=== PATIENT | male | born 1970 | race Caucasian/White ===

== ENCOUNTER 2018-04-25 17:16 | Emergency (ER) | payer BC, SELFPAY ==
[2018-04-25] VITALS (18 sets, daily range): BP systolic 111–179; BP diastolic 77–104; PULSE 70–101; RESP 12–30; TEMP 36.6–37; O2SAT 90–100
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
[2018-04-25] MEDS: LORazepam 2 MG/ML VIAL (17:20)
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
--- NOTE | 2018-04-25 17:27 | DI.CT_ITS ---
SYMPTOM/DIAGNOSIS: ABRUPT UPPER ABDOMINAL PAIN, POSTERIOR RIB PAIN CHEST CT: The exam is mildly limited by motion. The heart size is normal. The lungs are clear. No pneumothorax, pleural or pericardial effusions are seen. CT ABDOMEN AND PELVIS: The liver is enlarged and shows mild fatty infiltration. The patient is status post cholecystectomy. There is no biliary dilatation. Tiny hypodensity seen at the upper portion of the spleen, likely a cyst. The pancreas, adrenals and kidneys as well as prostate and bladder are unremarkable. No bowel dilatation or inflammatory changes are seen. No free air or free fluid is seen. There is a right hip prosthesis. Degenerative changes are noted in the left hip. There are bilateral L5 pars defects with no significant spondylolisthesis. There is mild disc bulging at L5-S1 and small end plate osteophytes. Osteophytes are seen in the lower and mid thoracic region projecting mainly anteriorly and toward the right. IMPRESSION: No acute abnormality. Incidental findings as mentioned above.
[2018-04-25] MEDS: HYDROmorphone 2 MG/ML VIAL 1 MG IVP (17:29)
[2018-04-25] MEDS: Ondansetron 4 MG/2 ML VIAL IVP ×2 (17:29→22:30)
[2018-04-25 17:33] LABS: Abs Immature Grans 0.02 k/cumm (0.0-0.09); Absolute Basophil Count 0.03 k/cumm (0.0-0.2); Absolute Eosinophil Count 0.14 k/cumm (0.0-0.7); Absolute Monocyte Count 0.47 k/cumm (0.11-0.7); Basophils % 0.2; Eosinophils % 1.1; HCT 43.3 % (40.0-50.0); HGB 15.3 g/dL (13.5-17.5); Immature Grans % 0.2; Lymphocytes % 8.9; Mean Corp. HGB Concentration 35.3 g/dL (32.0-36.0); Mean Corpuscular Hemoglobin 32.3 pg (27.0-33.0); Mean Corpuscular Volume 91.5 fL (80-95); Mean Platelet Volume 8.8 fL (8.0-11.0); Monocytes % 3.7; Neutrophils % 85.9; Platelet Count 337 x1000/uL (130-400); RBC 4.73 m/cumm (4.50-6.00); RBC Distribution Width 12.6 % (11.8-14.1); White Blood Cell Count 12.63 k/cumm (4.4-10.8)
[2018-04-25 17:36] LABS: Absolute Lymphocyte Count 1.12 k/cumm (1.2-3.4); Absolute Neutrophil Count 10.85 k/cumm (1.2-6.7)
[2018-04-25 17:50] LABS: ALT 51 U/L (12-78); AST 29 U/L (15-37); Albumin 4.7 g/dL (3.4-5.0); Alkaline Phosphatase 77 U/L (46-116); Anion Gap 15.5 mmol/L (3-11); BUN 13 mg/dL (7-18); Bilirubin, Total 0.6 mg/dL (0.2-1.0); CO2 26.5 mmol/L (21.0-32.0); CREATININE 0.99 mg/dL (0.70-1.30); Calcium 9.9 mg/dL (8.5-10.1); Chloride 98 mmol/L (98-107); Glucose 138 mg/dL (70-100); Lipase 62 U/L (73-393); Magnesium 1.6 mg/dL (1.8-2.4); Potassium 3.4 mmol/L (3.5-5.1); Sodium 140 mmol/L (136-145); Total Protein 8.8 g/dL (6.4-8.2)
[2018-04-25 17:51] LABS: Troponin I < 0.02 ng/mL (0.00-0.06)
[2018-04-25] MEDS: Pantoprazole 40 MG VIAL IVP (17:55)
[2018-04-25] MEDS: Omnipaque 350 MG/ML 100 ML BTL IJ (18:22)
--- NOTE | 2018-04-25 18:52 | DI.VRAD_ITS ---
EXAM: CT Chest With Contrast EXAM DATE/TIME: 04/25/2018 6:16 PM CLINICAL HISTORY: 48 years old, male; Pain; Other: Abrupt upper abd pain; Chest pain; Type not specified TECHNIQUE: Axial computed tomography images of the chest with intravenous contrast. Coronal and sagittal reformatted images were created and reviewed. COMPARISON: CT Private^ROUTINE ABDOMEN PELVIS WITH CONTRAST (Adult) 04/25/2018 6:11 PM FINDINGS: Lungs: Clear. Pleural space: Normal. No pneumothorax. No pleural effusion. Heart: Normal in size and configuration. No pericardial effusion. Pulmonary arteries: Normal in course and caliber. Aorta: Normal in course and caliber. No acute pathology. Lymph nodes: No adenopathy. Bones/joints: No acute skeletal pathology. Mild multilevel degenerative changes of the spine, as manifested by multilevel anterior osteophytes and multilevel decrease in intervertebral disc space. Soft tissues: Unremarkable. Upper abdomen: Visualized upper abdominal structures are unremarkable. IMPRESSION: Negative for acute thoracic pathology. EXAM: CT Abdomen and Pelvis With Contrast EXAM DATE/TIME: 04/25/2018 6:16 PM CLINICAL HISTORY: 48 years old, male; Pain; Other: Abrupt upper abd pain; Chest pain; Type not specified TECHNIQUE: Axial computed tomography images of the abdomen and pelvis with intravenous contrast. Coronal and sagittal reformatted images were created and reviewed. COMPARISON: CT Private^ROUTINE ABDOMEN PELVIS WITH CONTRAST (Adult) 04/25/2018 6:11 PM FINDINGS: Lower thorax: No acute findings. ABDOMEN: Liver: Liver is enlarged measuring 22 cm long. There is a diffuse decrease in hepatic parenchymal density, consistent with fatty infiltration. No focal liver lesions or acute pathology. Gallbladder and bile ducts: Patient status post cholecystectomy. No biliary ductal dilation. Pancreas: Normal. No ductal dilation. Spleen: 1.0 cm hypodense lesion in the upper pole of the spleen is indeterminate, but most likely benign representing a small cyst. Spleen is otherwise unremarkable. Adrenals: Normal. No mass. Kidneys and ureters: Normal. No hydronephrosis. Stomach and bowel: There is diffuse colonic wall thickening. No bowel obstruction. Small bowel appears grossly unremarkable. Appendix: Appendix is not confidently visualized in this examination. PELVIS: Bladder: Unremarkable as visualized. Reproductive: Unremarkable as visualized. ABDOMEN and PELVIS: Intraperitoneal space: Normal. No free air. No significant fluid collection. Bones/joints: Patient status post complete right hip arthroplasty without acute complications. No acute skeletal pathology. Mild multilevel degenerative changes of the spine, as manifested by multilevel anterior osteophytes and multilevel decrease in intervertebral disc space. Bilateral L5-S1 spondylolysis. Soft tissues: Small bilateral fat-containing inguinal hernias are noted. Vasculature: The vasculature demonstrates diffuse mild atherosclerotic calcification. Lymph nodes: Normal. No enlarged lymph nodes. IMPRESSION: 1. Differential diagnosis for colonic findings includes: Infectious/inflammatory pancolitis, colonic submucosal edema, or wall thickening related to underdistention. 2. No other acute abdominopelvic pathology is appreciated. 3. Incidental findings as detailed above. Dictated and Authenticated by: Trung García MD. Ordering:JERE Branch MD
[2018-04-25 21:17] LABS: Troponin I < 0.02 ng/mL (0.00-0.06)
--- NOTE | 2018-04-25 22:15 | ED.GENADUL_ITS ---
Discharge Plan Disposition Patient Disposition: HOME Condition: Good Discharge Details Chief Complaint: Chest Pain Clinical Impression: Acute epigastric pain, Gastritis Reason For Visit: I tthink im having a heart attack Primary Care Provider: Urban Burns ED Provider: Wyatt Cooper Home Meds and New Rx's Prescriptions: New ranitidine HCl 300 mg capsule 300 mg PO DAILY Qty: 30 RF: 0 No Action pantoprazole [Protonix] 40 mg Tablet,Delayed Release (Dr/Ec) 40 mg PO DAILY RF: 0 lorazepam 0.5 MG tablet 0.5 mg PO PRN PRNRF: 0 meloxicam [Mobic] 15 MG tablet 15 mg PO DAILY RF: 0 hydromorphone 4 MG tablet 4 mg PO PRN PRNRF: 0 diphenhydramine-acetaminophen [Tylenol PM Extra Strength] 1 EACH tablet 1 tab PO HS RF: 0 Discharge Instructions Instructions: Gastritis (ED), Abdominal Pain (ED) Additional Instructions: Please avoid any spicy foods, tomato-based products, garlic foods, or citrus- based products. Please stick with a easy diet of mashed potatoes, rice, and oatmeal for the time being. Please take medication as directed. if you notice any worsening of your symptoms, or any new symptoms such as vomiting, diarrhea, fever, chills, shortness of breath, chest pain, numbness, weakness, or fainting , please return immediately to the emergency department for reevaluation. Please follow up with your primary care provider as soon as possible for reassessment and reevaluation. As always, it was a pleasure participating in your medical care today. Referrals: Urban Burns [Primary Care Provider] - Medical Decision Making This is a 48-year-old male who was signed out to me my my colleague Dr. Jose Carlos Dugan. We are pending a repeat troponin at that time. Repeat troponin has returned normal. Patient came in for complaint of epigastric pain that started roughly 30 minutes to an hour prior to arrival. 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 Patient's laboratory workup was relatively benign. CT chest abdomen and pelvis was negative for any acute process. EKG benign. Lipase was normal, troponin normal, alk phos normal. Patient has had his appendix and gallbladder surgically removed. Patient is feeling much better at this time after Zofran. I feel the patient signs and symptoms are consistent with most likely mild gastritis, and clinically inconsistent at this time with acute ACS. Patient's heart score is low. Thank you patient will be discharged home with close follow-up. We discussed the importance of further evaluation for potential EGD on an outpatient basis as well as the appropriate diet. I have extensively reviewed the treatment plan and discharge instructions with the patient. I have addressed all patient concerns at this time. The patient was made aware of what symptoms to monitor for that would warrant a return to the emergency department. Discussed the plan with the patient, they demonstrate verbal understanding and agreement with our assessment and plan at this time. HPI General Mode of arrival: ambulatory . Date/Time Provider Initiated Documentation: 04/25/18 17:17 . Limitations to Documentation: no limitations . Information obtained by: patient . History of Present Illness Quality is described as constant, and is localized to the abdomen. No relieving factors improve symptom(s), No exacerbating factors reported . Patient notes no other symptoms.. Patient did receive the following treatments prior to arrival, none Related Data Home Medications Medication Instructions Recorded Confirmed diphenhydramine-acetaminophen 1 tab PO HS 03/14/17 04/25/18 [Tylenol PM Extra Strength] hydromorphone 4 mg PO PRN PRN 03/14/17 04/25/18 lorazepam 0.5 mg PO PRN PRN 03/14/17 04/25/18 meloxicam [Mobic] 15 mg PO DAILY 03/14/17 04/25/18 pantoprazole [Protonix] 40 mg PO DAILY 04/25/18 04/25/18 ranitidine HCl 300 mg PO DAILY #30 cap 04/25/18 Previous Rx's Medication Instructions Recorded ranitidine HCl 300 mg PO DAILY #30 cap 04/25/18 Allergies Allergy/AdvReac Type Severity Reaction Status Date / Time acetaminophen [From Percocet] Allergy Intermediate Unverified 04/25/18 17:28 oxycodone [From Percocet] Allergy Intermediate Unverified 04/25/18 17:28 povidone-iodine AdvReac Mild Unverified 04/25/18 17:28 [From Betadine] soap [From Betadine] AdvReac Mild Unverified 04/25/18 17:28 General Stated Complaint: Chest Pain VONNIE: 2 PFSH Social History Smoking/Tobacco Use Status: Former Tobacco Use Course Vital Signs Respiratory Rate 20 04/25/18 17:17 Pulse Oximetry 100 04/25/18 17:17 Temperature 37 C 04/25/18 18:32 Temperature Source Tympanic 04/25/18 18:32 Pulse 91 H 04/25/18 19:01 Pulse 101 H 04/25/18 19:01 Respiratory Rate 12 04/25/18 19:01 Respiratory Effort 04/25/18 17:37 Blood Pressure 111/77 04/25/18 19:01 Blood Pressure Mean 83 04/25/18 19:01 Blood Pressure Position Supine 04/25/18 17:20 Pulse Oximetry 93 L 04/25/18 19:01 Oxygen Delivery Method Room Air 04/25/18 18:32 Oxygen Flow Rate 0 04/25/18 18:32 Pain Level 3 04/25/18 18:32 Lab/Test Results Lab/Test Results: Laboratory Tests Range/Units 04/25/18 04/25/18 04/25/18 17:16 17:16 20:50 WBC (4.4-10.8) k/cumm 12.63 H RBC (4.50-6.00) m/cumm 4.73 Hgb (13.5-17.5) g/dL 15.3 Hct (40.0-50.0) % 43.3 MCV (80-95) fL 91.5 MCH (27.0-33.0) pg 32.3 MCHC (32.0-36.0) g/dL 35.3 RDW (11.8-14.1) % 12.6 Plt Count (130-400) x1000/uL 337 MPV (8.0-11.0) fL 8.8 Immature Gran % 0.2 Neutrophils % 85.9 Lymphocytes % 8.9 Monocytes % 3.7 Eosinophils % 1.1 Basophils % 0.2 Absolute Neutrophils (1.2-6.7) k/cumm 10.85 H Absolute Lymphocytes (1.2-3.4) k/cumm 1.12 L Absolute Monocytes (0.11-0.7) k/cumm 0.47 Absolute Eosinophils (0.0-0.7) k/cumm 0.14 Absolute Basophils (0.0-0.2) k/cumm 0.03 Sodium (136-145) mmol/L 140 Potassium (3.5-5.1) mmol/L 3.4 L Chloride (98-107) mmol/L 98 Carbon Dioxide (21.0-32.0) mmol/L 26.5 Anion Gap (3-11) mmol/L 15.5 H BUN (7-18) mg/dL 13 Creatinine (0.70-1.30) mg/dL 0.99 Estimated GFR/1.73 m2 (mL/min/1.73m2) >= 60.00 Glucose (70-100) mg/dL 138 H Calcium (8.5-10.1) mg/dL 9.9 Magnesium (1.8-2.4) mg/dL 1.6 L Total Bilirubin (0.2-1.0) mg/dL 0.6 AST (15-37) U/L 29 ALT (12-78) U/L 51 Alkaline Phosphatase (46-116) U/L 77 Troponin I (0.00-0.06) ng/mL < 0.02 < 0.02 Total Protein (6.4-8.2) g/dL 8.8 H Albumin (3.4-5.0) g/dL 4.7 Lipase (73-393) U/L 62 L
[2018-04-25] MEDS: Ondansetron O.D.T. 4 MG TABEF PO (22:37)
== END 2018-04-25 22:42 | disposition home or self-care (01) ==
PROVIDERS: Emergency Medicine; Emergency Provider Student in an Organized Health Care Education/Training Program; PCP Family Medicine
DX: R10.13 Epigastric pain (principal); R11.10 Vomiting, unspecified; F41.9 Anxiety disorder, unspecified; I10 Essential (primary) hypertension; Z87.891 Personal history of nicotine dependence
CPT/HCPCS: 36415; 74177; 80053; 83690; 93005; 96374; 96375; 96376; 99285; 71260; 83735; 84484; 85025; 93010; 99284; J2060; J2405; J3490

== ENCOUNTER 2018-06-06 21:23 | Emergency (ER) | payer BC, SELFPAY ==
[2018-06-06 21:29] VITALS: BP 164/92; PULSE 98; RESP 18; TEMP 36; O2SAT 97
--- NOTE | 2018-06-06 21:33 | ED.GENADUL_ITS ---
Discharge Plan Disposition Patient Disposition: HOME Condition: Stable Discharge Details Chief Complaint: Laceration Clinical Impression: Contusion of left middle finger, Contusion of left index finger Reason For Visit: left middle and index Primary Care Provider: Urban Burns ED Provider: Vidal Nicole Home Meds and New Rx's Prescriptions: New amoxicillin-pot clavulanate [Augmentin] 875-125 mg tablet 1 tab PO BID Qty: 14 RF: 0 No Action pantoprazole [Protonix] 40 mg Tablet,Delayed Release (Dr/Ec) 40 mg PO DAILY RF: 0 lorazepam 0.5 MG tablet 0.5 mg PO PRN PRNRF: 0 meloxicam [Mobic] 15 MG tablet 15 mg PO DAILY RF: 0 hydromorphone 4 MG tablet 4 mg PO PRN PRNRF: 0 diphenhydramine-acetaminophen [Tylenol PM Extra Strength] 1 EACH tablet 1 tab PO HS RF: 0 sertraline 100 mg Tablet 300 mg PO DAILY RF: 0 Discharge Instructions Additional Instructions: Soak your fingers twice a day or if it gets dirty to help prevent infection if you have redness spreading away from the wound or yellow/white discharge return to the emergency department for reevaluation Medical Decision Making 48 yo male was using a drill bit and went through his left middle finger on the fat pad area anteriorly. Did not fall or hit his head. Bleeding controlled on arrival, has a through and through injury to stated area, intact sensation. Will obtain xray to eval for fx pt remains stable. HE is now not sure if he is utd on tetanus so will up date this. Xray shows no acute fx, has small metallic foreign bodies likely debris from the drill bit and is too small to extract. Will place on abx and advised f/u with pcp, return precautions given. HE has full rom at all joints so doubt tendon injury Differential Diagnosis fracture, contusion, laceration Imaging Data Radiologic Study: Attestation: I personally reviewed and interpreted this imaging study as follows: Imaging: X-Ray Radiologist's impression: IMPRESSION: 1. Negative for acute skeletal pathology. 2. Soft tissue laceration with at least 3 metallic foreign bodies noted at the tip of the middle finger, detailed above. HPI General Mode of arrival: ambulatory . Date/Time Provider Initiated Documentation: 06/06/18 21:27 . Limitations to Documentation: no limitations . Information obtained by: patient . History of Present Illness 48 year old M presents to the emergency department with the chief complaint of left middle finger injury, described as moderate, and is localized to the left and upper extremity. Patient reports no radiation. Patient started experiencing this hour(s) (1) and it has been constant. No relieving factors improve symptom(s), No exacerbating factors reported . Patient did receive the following treatments prior to arrival, none Related Data Home Medications Medication Instructions Recorded Confirmed diphenhydramine-acetaminophen 1 tab PO HS 03/14/17 06/06/18 [Tylenol PM Extra Strength] hydromorphone 4 mg PO PRN PRN 03/14/17 06/06/18 lorazepam 0.5 mg PO PRN PRN 03/14/17 06/06/18 meloxicam [Mobic] 15 mg PO DAILY 03/14/17 06/06/18 pantoprazole [Protonix] 40 mg PO DAILY 04/25/18 06/06/18 amoxicillin-pot clavulanate 1 tab PO BID #14 tab 06/06/18 [Augmentin] sertraline 300 mg PO DAILY 06/06/18 06/06/18 Previous Rx's Medication Instructions Recorded amoxicillin-pot clavulanate 1 tab PO BID #14 tab 06/06/18 [Augmentin] Allergies Allergy/AdvReac Type Severity Reaction Status Date / Time acetaminophen [From Percocet] Allergy Intermediate Unverified 06/06/18 21:33 oxycodone [From Percocet] Allergy Intermediate Unverified 06/06/18 21:33 povidone-iodine AdvReac Mild Unverified 06/06/18 21:33 [From Betadine] soap [From Betadine] AdvReac Mild Unverified 06/06/18 21:33 General VONNIE: 2 Review of Systems Review of Systems All systems reviewed & are unremarkable except as noted in HPI and below Constitutional Denies chills and Denies fever(s) ENT Denies change in voice Cardiovascular Denies chest pain and Denies dyspnea Respiratory Denies cough and Denies dyspnea Gastrointestinal Denies abdominal pain, Denies nausea and Denies vomiting Integumentary/Breasts Denies rash PFSH Social History Smoking and Tabacco status: Former Tobacco Use Exam Const General: no acute distress Orientation: alert HENMT Head: normal to inspection Ears: external ears normal General nose exam: external nose normal Mouth: moist mucous membranes Eyes General: appearance normal, both eyes and all related structures Neck Neck: normal visual inspection Resp Effort & Inspection: normal respiratory effort and able to speak in complete sentences Cardio Rate: regular rate Skin General skin exam: no rashes or lesions noted Neuro General: alert and oriented x3 Extrem General: normal capillary refill Psych Mental Status: mental status grossly normal
--- NOTE | 2018-06-06 21:42 | DI.RAD_ITS ---
SYMPTOMS/DIAGNOSIS: PAIN, S/P DRILL BIT INJURY LEFT MIDDLE FINGER: Three views. No acute fracture or dislocation is seen. There does appear to be some soft tissue swelling and a soft tissue defect on the anterior aspect of the distal finger. There are three tiny radiopaque foreign bodies (less than a millimeter) in the subcutaneous tissues in the volar aspect of the tip of the left middle finger. IMPRESSION: 1. No acute fracture or dislocation. 2. Three tiny metallic foreign bodies in the soft tissues of the distal finger.
--- NOTE | 2018-06-06 22:42 | DI.VRAD_ITS ---
EXAM: XR Left Finger(s), 2 or More Views EXAM DATE/TIME: 06/06/2018 9:42 PM CLINICAL HISTORY: 48 years old, male; Signs and symptoms; Other: Pain status post drill bit injury; Additional info: Please include index finger per er dr TECHNIQUE: XR Left finger minimum 2 views. COMPARISON: No relevant prior studies available. FINDINGS: Bones/joints: Osseous anatomic alignment is well preserved. No acutely displaced fracture or dislocation. Joint spaces are well preserved. Soft tissues: There is a soft tissue laceration with associated soft tissue swelling at the tip of the middle finger. There are at least 3 tiny (1 mm) metallic foreign bodies embedded in the volar subcutaneous tissues at the tip of the middle finger. IMPRESSION: 1. Negative for acute skeletal pathology. 2. Soft tissue laceration with at least 3 metallic foreign bodies noted at the tip of the middle finger, detailed above. Dictated and Authenticated by: Trung García MD. Ordering:REBECA Drake MD
[2018-06-06] MEDS: Amoxicillin 875/Clav. 125 TAB PO (23:07)
== END 2018-06-06 23:21 | disposition home or self-care (01) ==
PROVIDERS: Emergency Provider Emergency Medicine; PCP Family Medicine
DX: S61.323A Laceration with foreign body of left middle finger with damage to nail, initial encounter (principal); W31.1XXA Contact with metalworking machines, initial encounter
CPT/HCPCS: 99283; 73140

== ENCOUNTER 2018-12-10 15:16 | Emergency (ER) | payer BC, SELFPAY ==
[2018-12-10] VITALS (25 sets, daily range): BP systolic 124–168; BP diastolic 75–128; PULSE 88–117; RESP 1–46; TEMP 36.7–36.8; O2SAT 93–100
--- NOTE | 2018-12-10 15:18 | ED.GENADUL_ITS ---
Discharge Plan Disposition Patient Disposition: HOME Condition: Improving Discharge Details Chief Complaint: SOB Clinical Impression: Acute bronchitis, History of chronic obstructive pulmonary disease Primary Care Provider: Urban Burns ED Provider: Cookie Belcher Home Meds and New Rx's Prescriptions: New prednisone 20 mg tablet See Rx Instructions .ROUTE .COMPLEX Qty: 12 RF: 0 albuterol sulfate 2.5 mg /3 mL (0.083 %) solution for nebulization 2.5 mg IH Q6H Qty: 75 RF: 0 benzonatate [Tessalon Perles] 100 mg capsule 100 mg PO TID PRN (Reason: cough) Qty: 14 RF: 0 Continued pantoprazole [Protonix] 40 mg Tablet,Delayed Release (Dr/Ec) 40 mg PO DAILY RF: 0 lorazepam 0.5 MG tablet 0.5 mg PO PRN PRNRF: 0 meloxicam [Mobic] 15 MG tablet 15 mg PO DAILY RF: 0 hydromorphone 4 MG tablet 4 mg PO PRN PRNRF: 0 diphenhydramine-acetaminophen [Tylenol PM Extra Strength] 1 EACH tablet 1 tab PO HS RF: 0 sertraline 100 mg Tablet 300 mg PO DAILY RF: 0 amoxicillin-pot clavulanate [Augmentin] 875-125 mg tablet 1 tab PO BID Qty: 14 RF: 0 Discharge Instructions Instructions: Acute Bronchitis (ED) Additional Instructions: Take the steroids until finished. Use the albuterol inhaler and nebulizer machine as needed and directed. Follow-up with your primary care doctor next week for reevaluation. Follow-up with Alicia Burns and respiratory for a pulmonary function test. Follow-up with pulmonology Dr. Nowak in [place]. Return immediately to the emergency department if you develop any worsening or new concerning symptoms. Discharge Data Discharge Date/Time-TO BE ENTERED AT DEPARTURE: 12/10/18 18:24 Discharge Physician: Cookie Belcher Medical Decision Making 48-year-old male with a history of COPD, GERD, PTSD who presents with dry cough and shortness of breath for the past 6 days. Patient is a daily marijuana smoker. He quit tobacco smoking previously. He denies fever or chest pain. EKG notes a rate of 102, sinus with no acute ST ischemic changes. He has scattered wheezing and rhonchi. He states he feels short of breath but has been very talkative and oxygen saturation remained 100% on room air. Due to age and history, cardiac work-up and chest x-ray ordered. Labs reviewed and unremarkable. White blood cell count 11. D-dimer negative. Troponin negative. Chest x-ray negative. Patient reassessed and complaining of persistent cough. Discussed with respiratory and they gave patient an acapella to help with lower lobe secretions. Pt was given another neb and improved. Patient discussed earlier how he was not satisfied with his experience with Norbert from respiratory therapy earlier this week. Norbert from respiratory therapy discussed with patient at bedside and patient became verbally aggressive and screaming at Norbert telling him to get out of the room. Patient stated you brought him in here to taunt me . Discussed with patient that with his experience with Norbert earlier this week, we wanted to open the lines of communication to see if this could help clarify any miscommunication. Patient states he will not follow-up with Dr. oNwak at [place] as recommended and does not want to return here and he will see [facility] pulmonary. Patient stated I have [place] on my speed dial and I can make a phone call any time . He also stated that Norbert did not treat me properly the other day because I have outstanding bills and I know he looked that up and did not treat me because of this. Discussed with patient that we treat patients regardless of their financial situation. Patient states he does feel much better and would like to go home. He was given a nebulizer machine, albuterol solution, inhaler and prednisone. As he has no complaint of fever or sputum production, do not see an indication for antibiotics. He was advised to stop smoking as this will likely contribute to or worsen his current illness. Medical Records Medical records reviewed: Yes I reviewed the patient's medical records. Imaging Data Radiologic Study: Radiologist's impression: PORTABLE AP CHEST: There are no prior comparison exams. The cardiac and mediastinal contours have a normal appearance. The lungs are well inflated and clear. No infiltrate, effusion or pneumothorax is seen. IMPRESSION: Negative portable chest. Lab Data Lab results reviewed: Yes I reviewed the patient's lab results. ECG Data Attestation: I personally reviewed and interpreted this ECG (s) as follows: Interpretation: rate of 102 [address]pm[address] no acute ST elevation or depression. NJ 154. QTc 432. QRS 98. HPI General Mode of arrival: ambulatory . Date/Time Provider Initiated Documentation: 12/10/18 15:16 . Limitations to Documentation: no limitations . Information obtained by: patient . HPI Narrative: Patient is a 40-year-old male with a history of possible COPD that is never been formally diagnosed, chronic daily marijuana smoker for history of chronic orthopedic pain who presents with shortness of breath and dry cough for the past 6 days. He denies any fever or chest pain. He denies leg pain or swelling, recent surgery or recent travel. He states he has had chronic shortness of breath for the past 2 years. He states he saw respiratory therapy at pulmonary rehab on Thursday for his chronic shortness of breath and states he was turned away and they did not do anything for me and told to follow-up with Dr. Nowak pulmonology at [place]. Patient states he called Dr. Nowak's office and they cannot see him until February. Related Data Home Medications Medication Instructions Recorded Confirmed diphenhydramine-acetaminophen 1 tab PO HS 03/14/17 06/06/18 [Tylenol PM Extra Strength] hydromorphone 4 mg PO PRN PRN 03/14/17 06/06/18 lorazepam 0.5 mg PO PRN PRN 03/14/17 06/06/18 meloxicam [Mobic] 15 mg PO DAILY 03/14/17 06/06/18 pantoprazole [Protonix] 40 mg PO DAILY 04/25/18 06/06/18 amoxicillin-pot clavulanate 1 tab PO BID #14 tab 06/06/18 [Augmentin] sertraline 300 mg PO DAILY 06/06/18 06/06/18 albuterol sulfate 2.5 mg IH Q6H #75 ml 12/10/18 benzonatate [Tessalon Perles] 100 mg PO TID PRN #14 cap 12/10/18 prednisone See Rx Instructions .ROUTE 12/10/18 .COMPLEX #12 tab Previous Rx's Medication Instructions Recorded amoxicillin-pot clavulanate 1 tab PO BID #14 tab 06/06/18 [Augmentin] albuterol sulfate 2.5 mg IH Q6H #75 ml 12/10/18 benzonatate [Tessalon Perles] 100 mg PO TID PRN #14 cap 12/10/18 prednisone See Rx Instructions .ROUTE 12/10/18 .COMPLEX #12 tab Allergies Allergy/AdvReac Type Severity Reaction Status Date / Time acetaminophen [From Percocet] Allergy Intermediate Unverified 06/06/18 21:33 oxycodone [From Percocet] Allergy Intermediate Unverified 06/06/18 21:33 povidone-iodine AdvReac Mild Unverified 06/06/18 21:33 [From Betadine] soap [From Betadine] AdvReac Mild Unverified 06/06/18 21:33 General VONNIE: 2 Review of Systems Review of Systems ROS Unobtainable: All systems reviewed & are unremarkable except as noted in HPI and below Constitutional Constitutional: Reports as per HPI, Denies chills and Denies fever(s) Eyes Eyes: Denies blurry vision ENT Ears, Nose, Mouth, and Throat: Denies dizziness, Denies sore throat and Denies throat swelling Cardiovascular Cardiovascular: Denies chest pain and Reports dyspnea Respiratory Respiratory: Reports cough and Reports dyspnea Gastrointestinal Gastrointestinal: Denies abdominal pain, Denies diarrhea and Denies vomiting Genitourinary Genitourinary: Denies hematuria and Denies dysuria Musculoskeletal Musculoskeletal: Denies back pain and Denies numbness Integumentary/Breasts Skin/Breast: Denies lesions and Denies rash Neurologic Neurologic: Denies dizziness, Denies focal weakness and Denies numbness Allergic/Immunologic Allergic/Immunologic: Denies throat swelling [facility] Medical History Chronic pain (Chronic) COPD (chronic obstructive pulmonary disease) (Chronic) GERD (gastroesophageal reflux disease) (Chronic) PTSD (post-traumatic stress disorder) (Acute) Surgical History History of appendectomy (Chronic) History of hip replacement (Chronic) Hx of cholecystectomy (Chronic) Social History Smoking/Tobacco Use Status: Former Tobacco Use Alcohol Intake: never Drug use: Daily Substance use type: marijuana Do you feel safe at home: Yes Do you feel safe in your relationship?: Yes Exam Const General: cooperative, healthy appearing and no acute distress HENMT Head: normal to inspection Face and sinus: normal facial exam Eyes General: appearance normal, both eyes and all related structures EOM: EOM intact bilaterally Neck Neck: normal visual inspection and No submandibular swelling Lymphatic: no lymphadenopathy noted Chest Chest: normal inspection of the chest and no tenderness Resp Effort & Inspection: normal respiratory effort and able to speak in complete sentences Auscultation: rhonchi and wheezes Cardio Rate: tachycardic Rhythm: regular rhythm GI Inspection: normal to inspection Palpation: soft, not firm, not rigid and nontender Auscultation: normal bowel sounds Male General Exam: Yes normal external exam Back/Spine/Pelvis Thoracic/Lumbar Spine: thoracic and lumbar spine normal to inspection Pelvis: no pain with anterior-posterior compression Skin General skin exam: no rashes or lesions noted Neuro General: alert, awake and oriented x3 Cognition: normal cognition Speech: speech normal Motor: muscle tone normal throughout Sensory Exam: no sensory deficits noted Extrem General: normal to inspection, full ROM, normal capillary refill, no calf tenderness bilaterally and no edema Psych Appearance: grossly normal Mental Status: mental status grossly normal Speech and Movement: speech and movement normal Affect: normal affect
--- NOTE | 2018-12-10 15:21 | DI.RAD_ITS ---
SYMPTOMS/DIAGNOSIS: SHORTNESS OF BREATH, COUGH, ? ACUTE DISEASE PORTABLE AP CHEST: There are no prior comparison exams. The cardiac and mediastinal contours have a normal appearance. The lungs are well inflated and clear. No infiltrate, effusion or pneumothorax is seen. IMPRESSION: Negative portable chest.
[2018-12-10] MEDS: Albuterol/Ipratropium 3 ML UPD VIAL (15:31)
[2018-12-10] MEDS: methylPREDNISolone SUCC 125 MG VIAL (15:33)
[2018-12-10 15:37] LABS: Abs Immature Grans 0.05 k/cumm (0.0-0.09); Absolute Basophil Count 0.07 k/cumm (0.0-0.2); Absolute Eosinophil Count 0.51 k/cumm (0.0-0.7); Absolute Monocyte Count 0.71 k/cumm (0.11-0.7); Absolute Neutrophil Count 8.59 k/cumm (1.2-6.7); Basophils % 0.6; Eosinophils % 4.4; HCT 42.8 % (40.0-50.0); HGB 14.7 g/dL (13.5-17.5); Immature Grans % 0.4; Lymphocytes % 13.9; Mean Corp. HGB Concentration 34.3 g/dL (32.0-36.0); Mean Corpuscular Hemoglobin 32.3 pg (27.0-33.0); Mean Corpuscular Volume 94.1 fL (80-95); Mean Platelet Volume 8.5 fL (8.0-11.0); Monocytes % 6.2; Neutrophils % 74.5; Platelet Count 350 x1000/uL (130-400); RBC 4.55 m/cumm (4.50-6.00); RBC Distribution Width 13.3 % (11.8-14.1); White Blood Cell Count 11.53 k/cumm (4.4-10.8)
--- NOTE | 2018-12-10 15:49 | NUR.NOTE ---
pt proivided with breathing treatments x3 pt respirations more even less laborded pt cont cardiac cath lab technologist Nursing Note:
[2018-12-10] MEDS: Albuterol 2.5 MG/3 ML INH SOLN VIAL UPD (15:51)
[2018-12-10 15:54] LABS: ALT 52 U/L (16-63); AST 28 U/L (15-37); Albumin 4.6 g/dL (3.4-5.0); Alkaline Phosphatase 80 U/L (46-116); Anion Gap 12.8 mmol/L (3-11); BUN 11 mg/dL (7-18); Bilirubin, Total 0.4 mg/dL (0.2-1.0); CO2 27.2 mmol/L (21.0-32.0); CREATININE 0.97 mg/dL (0.70-1.30); Calcium 10.1 mg/dL (8.5-10.1); Chloride 101 mmol/L (98-107); Glucose 125 mg/dL (70-100); Magnesium 1.8 mg/dL (1.8-2.4); Potassium 4.3 mmol/L (3.5-5.1); Sodium 141 mmol/L (136-145); Total Protein 8.8 g/dL (6.4-8.2)
[2018-12-10 15:55] LABS: Troponin I < 0.05 ng/mL (0.00-0.06)
--- NOTE | 2018-12-10 16:10 | NUR.NOTE ---
md at bedside for re luis pt speaking in full sentences vs on cardaic monitor breathing treatments completed Nursing Note:
--- NOTE | 2018-12-10 16:26 | NUR.NOTE ---
resp at bedside for eval Nursing Note:
--- NOTE | 2018-12-10 16:39 | NUR.NOTE ---
pt breathing unlabored no dsitress noted resp at bedside for further eval Nursing Note:
[2018-12-10 17:17] LABS: D-Dimer 349 ng/mlFEU (<500)
[2018-12-10] MEDS: Benzonatate 100 MG CAP (17:32)
[2018-12-10] MEDS: Albuterol HFA 8 GM 60 PUFF INH IH (18:30)
== END 2018-12-10 18:24 | disposition home or self-care (01) ==
PROVIDERS: Emergency Provider Physician Assistant; PCP Family Medicine
DX: J44.0 Chronic obstructive pulmonary disease with (acute) lower respiratory infection (principal); J20.9 Acute bronchitis, unspecified; F12.10 Cannabis abuse, uncomplicated; Z87.891 Personal history of nicotine dependence
CPT/HCPCS: 36415; 80053; 93005; 94640; 96374; 99285; 71045; 83735; 84484; 85025; 85379; 93010; J2930; J7613; J7620

== ENCOUNTER 2019-06-21 22:43 | Emergency (ER) | payer BC, SELFPAY ==
[2019-06-21 22:53] VITALS: TEMP 36.8
[2019-06-21 22:57] VITALS: BP 129/93; PULSE 88; RESP 16; TEMP 36.8; O2SAT 97
--- NOTE | 2019-06-21 23:13 | ED.GENADUL_ITS ---
Discharge Plan Disposition Patient Disposition: HOME Condition: Good Discharge Details Chief Complaint: RespSymp Clinical Impression: Worried well Primary Care Provider: Nabor Jenkins ED Provider: Festus Dorman [place] Meds and New Rx's Prescriptions: Continued pantoprazole [Protonix] 40 mg Tablet,Delayed Release (Dr/Ec) 40 mg PO DAILY RF: 0 albuterol sulfate 2.5 mg /3 mL (0.083 %) solution for nebulization 2.5 mg IH Q6H Qty: 75 RF: 0 hydromorphone 4 MG tablet 4 mg PO PRN PRNRF: 0 diphenhydramine-acetaminophen [Tylenol PM Extra Strength] 1 EACH tablet 1 tab PO HS RF: 0 meloxicam [Mobic] 15 mg tablet 15 mg PO BID RF: 0 sertraline 100 mg Tablet 300 mg PO DAILY RF: 0 Discharge Instructions Additional Instructions: Testing is done for COVID through the drive-through area in the parking lot. Please call your primary care physician to arrange for that to happen. If you are concerned you may have COVID and you are asymptomatic or only mildly ill you should quarantine at home for the next 14 days. You should return to ED only if you develop altered mental status, chest pain, difficulty breathing, persistent vomiting, other worsening signs and symptoms. Referrals: Nabor Jenkins DO [Primary Care Provider] - Medical Decision Making Patient is presenting to the ED completely asymptomatic with request for COVID testing. Patient informed that we do not do COVID testing in the ED unless patient to be admitted to the hospital. Patients are supposed to contact primary care physician and be referred to drive through testing that is done here in the parking lot. Patient felt that I was dressing him down. Patient informed that the fact that he showed up in the emergency department to be shayd yfn technically requires me to quarantine him for 14 days since he clearly feels that he has a reason to be concerned. 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 He is completely well. In reviewing his medical record he actually had a telemedicine appointment with his primary care today. There is no mention of any concern for COVID in that note. Patient became rather upset. He states that the access worker that he talked to told him he could come here for testing. I did speak to all 3 access workers. That is not what this patient was told. He was told that testing was done at the tent and unless patients were sick and required to be seen in the emergency department for illness they should not come just for testing. Patient felt that since his son was sick, he felt that by proxy he should be tested. Of note the provider who saw the patient's son also referred son to drive through testing tomorrow as well. Patient did not allow for complete physical exam. He also left without discharge instruction upset that we wasted his time telling him to come here. Medical Records Medical records reviewed: Yes I reviewed the patient's medical records. HPI General Mode of arrival: ambulatory . Date/Time Provider Initiated Documentation: 06/21/19 22:53 . Limitations to Documentation: no limitations . Information obtained by: patient and old records reviewed . HPI Narrative: Patient presents to ED with request to be tested for COVID. He arrives in a industrial respirator. He reports that he has a runny nose but no other symptoms. He has a history of COPD but denies any worsening shortness of breath, chest pain, cough, fever. 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 Reports that his son who is also here to be tested does have some URI type symptomsand works at [employer]. Patient does have PCP. He states that he called ahead and was told we would test him. Related Data Home Medications Medication Instructions Recorded Confirmed diphenhydramine-acetaminophen 1 tab PO HS 03/14/17 06/21/19 [Tylenol PM Extra Strength] hydromorphone 4 mg PO PRN PRN 03/14/17 06/21/19 pantoprazole [Protonix] 40 mg PO DAILY 04/25/18 06/21/19 sertraline 300 mg PO DAILY 06/06/18 06/21/19 albuterol sulfate 2.5 mg IH Q6H #75 ml 12/10/18 06/21/19 meloxicam 15 mg tablet 15 mg PO BID tab 05/31/19 06/21/19 Previous Rx's Medication Instructions Recorded albuterol sulfate 2.5 mg IH Q6H #75 ml 12/10/18 Allergies Allergy/AdvReac Type Severity Reaction Status Date / Time acetaminophen [From Percocet] Allergy Intermediate Verified 06/21/19 22:57 oxycodone [From Percocet] Allergy Intermediate Verified 06/21/19 22:57 buspirone Allergy Dizzy/Light Verified 06/21/19 22:57 headed cyclobenzaprine Allergy Oversedatio Verified 06/21/19 22:57 [From Flexeril] n gabapentin Allergy Fatigue/Hea Verified 06/21/19 22:57 daches hydrocodone [From Vicodin] Allergy Malaise Verified 06/21/19 22:57 iodine Allergy Severe Rash Verified 06/21/19 22:57 tramadol [From Ultram] Allergy Malaise Verified 06/21/19 22:57 povidone-iodine AdvReac Mild Verified 06/21/19 22:57 [From Betadine] soap [From Betadine] AdvReac Mild Verified 06/21/19 22:57 General Stated Complaint: RespSymp VONNIE: 5 Review of Systems Narrative: As documented in HPI otherwise negative as below. Const: no fever, chills, weakness Resp: no cough, SOB, pleuritic pain CV: no CP, diaphoresis, edema, syncope GI: no abdominal pain, nausea, vomiting, diarrhea Neuro: no headache, numbness, focal weakness, confusion [facility] Medical History ADD (attention deficit disorder) (Acute) Adjustment disorder with mixed emotional features (Acute) Anxiety (Chronic) Chronic cough (Chronic) Chronic pain (Chronic) COPD (chronic obstructive pulmonary disease) (Chronic) Disturbance, sleep (Acute) Dyspnea (Acute) Erectile dysfunction (Acute) Gastritis (Acute) GERD (gastroesophageal reflux disease) (Chronic) Hearing loss (Acute) 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 Hip pain (Acute) Hyperlipidemia (Acute) Irritable colon (Chronic) Knee pain (Acute) Macrocytic anemia (Acute) Muscle weakness (Acute) PTSD (post-traumatic stress disorder) (Acute) Vitamin D deficiency (Acute) Surgical History History of appendectomy (Chronic ~1991) History of cystoscopy (Acute 07/23/15) and urethral dilation. , [facility] History of hip replacement (Chronic 03/25/07) right Hx of cholecystectomy (Chronic ~1993) S/P excision of ganglion cyst (Acute 07/14/12) R wrist Social History Smoking/Tobacco Use Status: Former Tobacco Use Quit Date: 12/31/05 Tobacco: How many years used: 20 Alcohol Intake: former Drug use: Daily Substance use type: marijuana Details: Patient vapes THC. 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 Slightly elevated blood pressure otherwise normal vitals. No tachycardia. Normal room air pulse oximetry. Const: WDWN male in NAD with store bought respirator on. HEENT: NC/AT. Eyes: Normal conjunctiva and sclera. Neck: Supple. Lungs: Normal respiratory effort. Neuro: A+O x 3. Normal speech, mentation, gait. Cranial nerves II - XII grossly intact. No gross motor or sensory deficit. Course Vital Signs Vital signs: Vital Signs Temperature 98.2 F 06/21/19 22:53 Temperature 98.2 F 06/21/19 22:57 Temperature Source Temporal Artery Scan 06/21/19 22:57 Pulse 88 06/21/19 22:57 Respiratory Rate 16 06/21/19 22:57 Respiratory Effort Non-Labored 06/21/19 22:59 Blood Pressure 129/93 H 06/21/19 22:57 Pulse Oximetry 97 06/21/19 22:57 Oxygen Delivery Method Room Air 06/21/19 22:57 Oxygen Flow Rate 0 06/21/19 22:57 Pain Level 0 06/21/19 22:53
== END 2019-06-21 23:10 | disposition home or self-care (01) ==
PROVIDERS: Emergency Provider Emergency Medicine; PCP Family Medicine
DX: R09.89 Other specified symptoms and signs involving the circulatory and respiratory systems (principal); Z71.1 Person with feared health complaint in whom no diagnosis is made; J44.9 Chronic obstructive pulmonary disease, unspecified; Z87.891 Personal history of nicotine dependence
CPT/HCPCS: 99281

== ENCOUNTER 2020-01-19 04:06 | Outpatient (CLI) | payer BC, SELFPAY ==
[2020-01-19 12:38] LABS: Abs Immature Grans 0.03 10^3/uL (0.0-0.06); Absolute Basophil Count 0.04 10^3/uL (0.0-0.2); Absolute Eosinophil Count 0.22 10^3/uL (0.0-0.7); Absolute Lymphocyte Count 1.05 10^3/uL (1.2-3.4); Absolute Monocyte Count 0.41 10^3/uL (0.1-0.8); Absolute Neutrophil Count 4.94 10^3/uL (1.2-6.7); Basophils % 0.6; Eosinophils % 3.3; HCT 41.6 % (40.0-50.0); HGB 14.3 g/dL (13.5-17.5); Immature Grans % 0.4; Lymphocytes % 15.7; MCH 32.4 pg (27.0-33.0); MCHC 34.4 % (32.0-36.0); MCV 94.1 fL (80-95); Monocytes % 6.1; Neutrophils % 73.9; Nucleated RBC 0 %; Platelet Count 237 10^3/uL (130-400); RBC 4.42 10^6/uL (4.36-5.78); RDW 13.2 % (11.8-14.1); RDW-SD 45.7 fL; WBC 6.69 10^3/uL (4.4-10.8)
[2020-01-19 13:29] LABS: ALT 47 U/L (16-63); AST 19 U/L (15-37); Albumin 4.2 g/dL (3.4-5.0); Alkaline Phosphatase 73 U/L (46-116); Anion Gap 7.7 mmol/L (3-11); BUN 14 mg/dL (7-18); Bilirubin, Total 0.3 mg/dL (0.2-1.0); CO2 28.3 mmol/L (21.0-32.0); CREATININE 0.86 mg/dL (0.70-1.30); Calcium 8.7 mg/dL (8.5-10.1); Chloride 105 mmol/L (98-107); Cholesterol 225 mg/dL (<200); Glucose 150 mg/dL (74-106); HDL Cholesterol 25 mg/dL (40-60); Sodium 141 mmol/L (136-145); TSH (W/Ref FT4) 2.21 uIU/mL (0.36-3.74); Total Protein 7.4 g/dL (6.4-8.2); Triglyceride 530 mg/dL (<150)
[2020-01-19 13:54] LABS: LDL CHOLESTEROL 116 mg/dL (<100)
[2020-01-20 09:36] LABS: HIV-1/2 Ag & Ab Screen Negative (Negative)
[2020-01-20 10:07] LABS: HBs Antibody, Qual Negative (See Note); HBs Antibody, Quant <3.1 mIU/mL (See Note); Hepatitis B Core Antibody Negative (Negative); Hepatitis B surface Ag Negative (Negative); Hepatitis C Ab w Rflx HCV PCR Negative (Negative)
[2020-01-20 10:10] LABS: Hepatitis C Ab w Rflx HCV PCR Negative (Negative)
[2020-01-20 11:43] LABS: Syphilis Serology (RPR) Negative (Negative)
[2020-01-21 16:42] LABS: Tissue Transglutaminase Ab IgA <1.2 U/mL
== END 2020-01-19 04:26 ==
PROVIDERS: PCP Family Medicine; Visit Provider Family Medicine
DX: E78.5 Hyperlipidemia, unspecified (principal); R53.83 Other fatigue; K52.9 Noninfective gastroenteritis and colitis, unspecified; Z11.3 Encounter for screening for infections with a predominantly sexual mode of transmission; Z11.59 Encounter for screening for other viral diseases; Z11.4 Encounter for screening for human immunodeficiency virus [HIV]
CPT/HCPCS: 36415; 80053; 80061; 83721; 86704; 86706; 86803; 87340; 87389; 83516; 84443; 85025; 86592

== ENCOUNTER → 2020-04-26 12:26 | Outpatient (REF) | payer BC, SELFPAY ==
[2020-04-30 15:11] LABS: Chlamydia Result Negative (Negative); GC Result Negative (Negative)
== END ==
LOC: LBN 12:26
PROVIDERS: PCP Family Medicine; Visit Provider Family Medicine
DX: N45.1 Epididymitis (principal)
CPT/HCPCS: 87491; 87591

== ENCOUNTER 2020-05-03 00:55 | Outpatient (CLI) | payer BC, SELFPAY ==
--- NOTE | 2020-05-03 08:30 | DI.US_ITS ---
EXAM: US SCROTUM CLINICAL HISTORY: R sided enlarged spermatic cord,EPIDIDYMITIS, N45.1. TECHNIQUE: Scrotal ultrasound performed using grayscale, color-flow and spectral Doppler analysis. COMPARISON: No exams were available for comparison FINDINGS: Right testicle: 4 x 2.2 x 3 cm Echogenicity: Normal. Contour: Smooth. Mass: None seen. Microlithiasis: None. Hydrocele: None. Variocele: Mildly prominent network of vessels adjacent to the right testicle which may represent a s mall varicocele. Hernia: No peristalsing bowel loop identified. Epididymis: Normal. Left testicle: 4.3 x 2.2 x 2.9 cm Echogenicity: Normal. Contour: Smooth. Mass: None seen. Microlithiasis: None. Hydrocele: None. Variocele: None. Hernia: No peristalsing bowel loop identified. Epididymis: Normal. DOPPLER: Color: Symmetric and uniform, no hyperemia. Duplex: Bilateral testicular arterial waveforms visualized. IMPRESSION: 1. Normal appearing bilateral testicles. 2. Mildly prominent network of vessels adjacent to the right testicle which may represent a small inna icocele. 3. No sonographic evidence of epididymitis. DATA REPOSITORY:
== END 2020-05-03 00:56 | disposition home or self-care (01) ==
LOC: DI 00:55
PROVIDERS: PCP Family Medicine; Visit Provider Family Medicine
DX: N45.1 Epididymitis (principal)
CPT/HCPCS: 76870

== ENCOUNTER 2020-06-21 02:40 | Outpatient (CLI) | payer BC, SELFPAY ==
[2020-06-21 11:56] LABS: Source Nasal/Nares
[2020-06-21 14:32] LABS: COVID-19 PCR Negative (Negative)
== END 2020-06-21 02:41 | disposition home or self-care (01) ==
LOC: LBO 02:40
PROVIDERS: PCP Family Medicine; Visit Provider Surgery
DX: Z20.822 Contact with and (suspected) exposure to COVID-19 (principal); Z01.818 Encounter for other preprocedural examination
CPT/HCPCS: 87635; U0003

== ENCOUNTER 2020-06-25 06:17 | Day surgery (SDC) | payer BC, SELFPAY ==
--- NOTE | 2020-06-25 06:19 | HPE_ITS ---
Date of service: 06/25/20 Time of Service: 06:19 Assessment and Plan Assessment and plan (1) Epigastric pain: Status: Acute (2) Encounter for colorectal cancer screening: Status: Acute Assessment and plan: The patient is here for Colonoscopy pre-op. He has no family history of colon cancer. He has not had any bowel habit changes. -Discussed colonoscopy bowel prep as well as the procedure. Discussed possible complications of the procedure to include bleeding, pain, perforation, missed small lesion/polyp, sore throat, aspiration and adverse reaction to the medications. Questions were answered to patient?s satisfaction. No guarantees were implied or given. Persistent Cyclical vomiting syndrome, epigastric pain, sore/scratchy throat which is also associated with changes to his voice. DDX Esophagitis -Discussed Upper endoscopy procedure and the need to be NPO after midnight the night prior. Discussed possible complications of the procedure to include bleeding, pain, perforation, missed small lesion/polyp/ulcers, sore throat, aspiration and adverse reaction to the medications or sedation. Questions were answered to patient?s satisfaction. No guarantees were implied or given. History of Present Illness Narrative: 50 y/o male with history of type 2 DM, anxiety, ADD and hyperlipidemia presents for complaints of epigastric pain and cyclical vomiting syndrome. He has noted associated symptoms of a scratchy throat and changes to his voice. He has eliminated spicy foods and caffeine from his diet and has lost 20 pounds. He has also cut down on his marijuana use from 13 misty joints/day to 4 misty joints/day. Also of note he states he rarely has solid BMs and questions if he has IBS. He denies a family history of colon cancer. He denies any changes in bowel habits including bloody or black tarry stools, abdominal pain, diarrhea or constipation. He denies constitutional symptoms. Denies use of marijuana or any other recreational or illegal drugs. He denies chest pain, palpitations, dyspnea or dyspnea with exertion. He denies prior history or family history of adverse reactions or complications with anesthesia. He reports having had a mini stroke at the age of 42, after which all of his symptoms have resolved. He denies having any residual neurological deficits. The patient denies any history of MD, seizures, bleeding or clotting disorders. He denies having any implanted metal in his body. There have been no changes in his health since he was last seen in the office on May 10. Review of Systems Cardiovascular Cardiovascular: Denies chest pain, Denies chest pain at rest, Denies irregular heart rhythm, Denies dyspnea and Denies dyspnea on exertion Respiratory Respiratory: Denies cough, Denies dyspnea and Denies dyspnea on exertion Gastrointestinal Gastrointestinal: Reports as per HPI Genitourinary Genitourinary: Denies dysuria, Denies urinary incontinence and Denies urinary urgency Endocrine Endocrine: Reports system reviewed and no additional complaints, except as documented Hematologic/Lymphatic Hematologic/Lymphatic: Denies easy bruising and Denies lymphadenopathy [facility] Medical History ADD (attention deficit disorder) ADHD (attention deficit hyperactivity disorder) Adjustment disorder with mixed emotional features Anxiety Asthma Chronic cough Chronic pain COPD (chronic obstructive pulmonary disease) Diabetes mellitus type II, controlled Disturbance, sleep Dyspnea Erectile dysfunction Gastritis Generalized anxiety disorder GERD (gastroesophageal reflux disease) Hearing loss 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 Hip pain Hyperlipidemia Hypertriglyceridemia Irritable colon Knee pain Macrocytic anemia Muscle weakness PTSD (post-traumatic stress disorder) Vitamin D deficiency Surgical History History of appendectomy (~1991) History of cystoscopy (07/23/15) and urethral dilation. , [facility] History of hip replacement (03/25/07) right Hx of cholecystectomy (~1993) S/P excision of ganglion cyst (07/14/12) R wrist Family History Paternal Grandfather Diabetes Heart disease Maternal Grandfather Cancer Other Anxiety Depression Hypertension Social History Smoking/Tobacco Use Status: Former Tobacco Use Quit Date: 12/31/05 Tobacco: How many years used: 20 Smoking risk assessment performed?: Yes Alcohol Intake: former Drug use: Daily Substance use type: marijuana Details: Patient vapes THC. 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: No Working smoke detector in home: Yes Fire extinguisher in home: Yes Carbon monox detector in home: Yes Do you feel safe at home: Yes Do you feel safe in your relationship?: Yes Meds Home Medications and Allergies Allergies Allergy/AdvReac Type Severity Reaction Status Date / Time acetaminophen [From Percocet] Allergy Intermediate scaly, red Verified 06/22/20 12:40 rash oxycodone [From Percocet] Allergy Intermediate scaly, red Verified 06/22/20 12:40 rash iodine Allergy Severe Verified 06/22/20 12:43 Rash-reported by patient povidone-iodine AdvReac Mild Skin Rash Verified 06/22/20 12:43 [From Betadine] soap [From Betadine] AdvReac Mild Skin Rash Verified 06/22/20 12:43 buspirone AdvReac Dizzy/Light Verified 06/22/20 12:40 headed cyclobenzaprine AdvReac Oversedatio Verified 06/22/20 12:40 [From Flexeril] n gabapentin AdvReac Fatigue/Hea Verified 06/22/20 12:40 daches hydrocodone [From Vicodin] AdvReac Malaise Verified 06/22/20 12:40 tramadol [From Ultram] AdvReac Malaise Verified 06/22/20 12:40 Home Medications Medication Instructions Recorded Confirmed Type diphenhydramine-acetaminophen 1 tab PO HS 03/14/17 06/22/20 History [Tylenol PM Extra Strength] albuterol sulfate 2.5 mg IH Q6H PRN #75 ml 08/15/19 06/22/20 Rx fluticasone propionate 110 1 puff IH BID #12 gm 08/25/19 06/22/20 Rx mcg/actuation HFA aerosol inhaler meloxicam 15 mg tablet 15 mg PO DAILY #90 tab 09/26/19 06/22/20 Rx ondansetron 4 mg disintegrating 4 mg PO Q8H PRN #30 tab 09/26/19 06/22/20 Rx tablet pantoprazole 40 mg tablet,delayed 40 mg PO DAILY #90 tab 11/08/19 06/22/20 Rx release gemfibrozil 600 mg tablet 600 mg PO DAILY #90 tab 02/21/20 06/22/20 Rx blood sugar diagnostic #100 ea 04/13/20 06/22/20 Rx blood-glucose meter #1 ea 04/13/20 06/22/20 Rx hydromorphone 4 mg tablet 4 mg PO PRN PRN #5 tab MDD 4 mg 04/13/20 06/22/20 Rx lancets #100 ea 04/13/20 06/22/20 Rx metformin 500 mg tablet 500 mg PO DAILY #90 tab 04/13/20 06/22/20 Rx naloxone 4 mg/actuation nasal spray 4 mg INTRANASAL Q2M PRN #2 ea 04/13/20 06/22/20 Rx bisacodyl 5 mg tablet,delayed 5 mg PO ONCE #4 tab 06/20/20 06/22/20 Rx release polyethylene glycol 3350 17 238 g PO ONCE #238 g 06/20/20 06/22/20 Rx gram/dose oral powder lorazepam 1 mg tablet 1 mg PO TID PRN #84 tab MDD 3 mg 06/22/20 06/22/20 Rx Exam Const General: healthy appearing and comfortable Orientation: alert and oriented x3 HENMT Head: normocephalic and atraumatic Resp Effort & Inspection: normal respiratory effort Auscultation: clear to auscultation bilaterally Cardio Rate: regular rate Rhythm: regular rhythm Heart Sounds: no click, no gallops and no murmurs
--- NOTE | 2020-06-25 06:22 | ENDO_ITS ---
Date of service: 06/25/20 Time of Service: :33 Endoscopy Report DATE OF PROCEDURE: 06/25/20 PRE-OP DIAGNOSIS: Epigastric pain, colon cancer screening PROCEDURE: 1. EGD with biopsies 2. Colonoscopy with polypectomy SURGEON: Delores Wallace ANESTHESIA TYPE: General:No Airway (ASA 2/Urban Ayon CRNA) ESTIMATED BLOOD LOSS: 5 PATHOLOGY: other (Ascending polyp x2, transverse polyp, descending polyp, antrum bx, GE junction bx) COMPLICATIONS: None DISPOSITION: same day INDICATIONS: The patient is here for Colonoscopy pre-op. He has no family history of colon cancer. He has not had any bowel habit changes. -Discussed colonoscopy bowel prep as well as the procedure. Discussed possible complications of the procedure to include bleeding, pain, perforation, missed small lesion/polyp, sore throat, aspiration and adverse reaction to the medications. Questions were answered to patient?s satisfaction. No guarantees were implied or given. Persistent Cyclical vomiting syndrome, epigastric pain, sore/scratchy throat which is also associated with changes to his voice. DDX Esophagitis -Discussed Upper endoscopy procedure and the need to be NPO after midnight the night prior. Discussed possible complications of the procedure to include bleeding, pain, perforation, missed small lesion/polyp/ulcers, sore throat, aspiration and adverse reaction to the medications or sedation. Questions were answered to patient?s satisfaction. No guarantees were implied or given. PREP: Miralax/Dulcolax PROCEDURE START TIME: :33 PROCEDURE END TIME: 08:13 COLONOSCOPY RETRACTION TIME: 21 minutes FINDINGS: Gastritis with old blood 4 small polyps PROCEDURE DESCRIPTION: After informed consent was obtained the patient was take to the procedure room and placed in a supine position. Monitors were applied and a time out was done. The patients name, date of , procedure type, allergies to medications and metal in their body was reviewed. A bite block was placed and the patient was sedated. Once sedated and comfortable the gastroscope was advanced through the oropharynx which was grossly normal into the esophagus. The proximal and mid- esophagus were normal. In the distal esophagus there was no inflammation noted. The scope was advanced into the stomach and through the pylorus into the 3rd portion of the duodenum. The duodenum was noted to be normal. The scope was retracted back into the stomach. There was mild inflammation noted in the antrum. Biopsies were done to rule out H. pylori. There were no ulcers. There was old blood noted. The scope was retro-flexed. The cardia and fundus were noted to be normal. There was no hiatal hernia noted. The scope was retracted back into the esophagus and biopsies were done of the GE junction to rule out Damian's. The Z line was regular. The GE junction was at 40 cm. While the patient was still sedated they were placed in a left decubitous position. A rectal exam was done. External exam was normal. Internal exam revealed a normal sphincter tone and no palpable masses. The prostate []. The scope was then introduced and retro-flexed. No internal hemorrhoids, masses or polyps were identified on retroflexion. The scope was then advanced to the cecum without difficulty. The ileocecal valve and appendiceal orifice were identified. The prep was good. The scope was then slowly retracted over 21 minutes back into the rectum. Polyps were removed with cold forceps in the ascending colon x2, transverse colon x1 and descending colon x1. There was no diverticulosis noted. The scope was removed and the patient was woken up and taken back to Same day surgery in stable condition. The patient tolerated the procedure well and there were no immediate complications. Follow up: 2 weeks in the office.
--- NOTE | 2020-06-25 06:23 | W.PM.DSUDISC ---
Discharge Plan Disposition Patient Disposition: HOME Condition: Good Discharge Details Reason For Visit: Colon cancer screening/epigastric pain Attending Provider: Delores Wallace Primary Care Provider: Nabor Jenkins [place] Meds and New Rx's Prescriptions: New pantoprazole 40 mg tablet,delayed release (DR/EC) 40 mg PO BID Qty: 60 RF: 0 Continued Flovent HFA 110 mcg/actuation HFA aerosol inhaler 1 puff IH BID Qty: 12 RF: 3 meloxicam 15 mg tablet 15 mg PO DAILY Qty: 90 RF: 3 ondansetron 4 mg tablet,disintegrating 4 mg PO Q8H PRN (Reason: nausea and vomiting) Qty: 30 RF: 11 gemfibrozil [Lopid] 600 mg tablet 600 mg PO DAILY Qty: 90 RF: 3 metformin 500 mg tablet 500 mg PO DAILY Qty: 90 RF: 3 (DME) Blood Glucose Test Strip See Rx Instructions .ROUTE .MEDSUPPLY Qty: 100 RF: 3 (DME) lancets Misc See Rx Instructions .ROUTE .MEDSUPPLY Qty: 100 RF: 3 hydromorphone 4 mg tablet 4 mg PO PRN MDD 4 mg PRN (Reason: pain) Qty: 5 RF: 0 Narcan 4 mg/actuation spray,non-aerosol 4 mg intranasal Q2M PRN (Reason: opioid overdose) Qty: 2 RF: 0 (DME) blood-glucose meter Misc See Rx Instructions .ROUTE .MEDSUPPLY Qty: 1 RF: 0 lorazepam 1 mg tablet 1 mg PO TID MDD 3 mg PRN (Reason: anxiety) Qty: 84 RF: 1 albuterol sulfate 2.5 mg /3 mL (0.083 %) solution for nebulization 2.5 mg IH Q6H PRN (Reason: wheezing) Qty: 75 RF: 6 diphenhydramine-acetaminophen [Tylenol PM Extra Strength] 1 EACH tablet 1 tab PO HS RF: 0 Discontinued pantoprazole [Protonix] 40 mg tablet,delayed release (DR/EC) 40 mg PO DAILY Qty: 90 RF: 3 polyethylene glycol 3350 17 gram/dose powder 238 g PO ONCE Qty: 238 RF: 0 bisacodyl [Dulcolax (bisacodyl)] 5 mg tablet,delayed release (DR/EC) 5 mg PO ONCE Qty: 4 RF: 0 Discharge Instructions Additional Instructions: Findings: inflammation of the stomach with some old blood. No ulcers a few small polyps in the large bowel Follow up: 10 days Please call if you develop: fevers >101.5 Nausea or Vomiting Abdominal pain that is not transient DAY SURGERY UNIT POST ENDOSCOPY INSTRUCTIONS 1. Because there will be medication in your system for the next 24 hours, you may feel a little sleepy. Your coordination will be affected. Therefore: a. Do not drive or operate dangerous equipment for 24 hours. b. Do not drink alcohol beverages for 24 hours (not even beer). c. Plan to go home and rest for the day. 2. Generally there are no restrictions on your activity after a day or so has gone by, but you may feel a bit fatigued for a few days. 3 After you arrive home you may have a light meal and return to a normal diet as you can tolerate it without feeling sick to your stomach. 4. After surgery, you may feel pain or discomfort. This should be only transient, but if it persists please contact your doctor. 5. If there are any questions regarding the findings of your procedure, please feel free to contact your doctor. 6. If you are unable to contact your doctor with a problem, contact the hospital at [phone]. 7. Continue all your regular medications unless directed otherwise. I understand the above instructions and have no questions. Signature of Patient or Responsible Adult Escort Date/Time Name of Responsible Adult Escort Signature of Nurse Date/Time Referrals: Delores Wallace MD [ [facility] STAFF PHYSICIAN] - 07/06/20 9:00 am Activity:: Activity as Tolerated Diet:: As Tolerated Discharge Orders Discharge Orders: Discharge Order (Routine); Ordered 06/25/20 Ordered By: Delores Wallace DS: Diagnosis Discharge Diagnosis (1) Epigastric pain: Status: Acute (2) Encounter for colorectal cancer screening: Status: Acute
[2020-06-25 06:48] VITALS: BP 138/75; PULSE 80; RESP 18; TEMP 36.4; O2SAT 96
[2020-06-25] MEDS: Lactated Ringers 1,000 ML 80 ML IV (07:05)
--- NOTE | 2020-06-25 07:36 | BOWEL_PTH ---
PATIENT: Devika Philip LOC: [facility] U#:[id number] AGE/SX: 50/M ROOM: RE06/25/[address]: Delores Wallace MD : 1970 BED: DIS: 06/25/2020 SPEC #: [id number] RECD: 06/25/20 12:47 STATUS: KAJAL REQ #: [id number] POPPY: 06/25/20 07:[address]: Delores Wallace DEPT: Surgical Specimen RECD BY: Nova Bray ENTERED: 06/25/20 12:52 SP TYPE: Bowel OTHR DR: Nabor Jenkins DO Tissues: 1 - STOMACH BIOPSY 2 - ESOPHAGUS BIOPSY 3 - BIOPSY BOWEL 4 - BIOPSY BOWEL 5 - BIOPSY BOWEL Procedures: GROSS AND MICRO LEVEL 4 Comments: [id number]
[2020-06-25 08:50] VITALS: BP 109/63; PULSE 75; RESP 20; TEMP 36.5; O2SAT 94
== END 2020-06-25 09:55 | disposition home or self-care (01) ==
PROVIDERS: PCP Family Medicine; Visit Provider Surgery
PROC: (CPT 45380; principal; 2020-06-25 07:30)
DX: Z12.11 Encounter for screening for malignant neoplasm of colon (principal); R10.13 Epigastric pain; K20.90 Esophagitis, unspecified without bleeding; K22.8 Other specified diseases of esophagus; K31.89 Other diseases of stomach and duodenum; D12.2 Benign neoplasm of ascending colon; D12.3 Benign neoplasm of transverse colon; D12.4 Benign neoplasm of descending colon
CPT/HCPCS: 45380; 43239; 88305; NC; J2001